=== PATIENT | female | born 1990 | race Caucasian/White ===

== ENCOUNTER → 2017-04-14 | Outpatient (REF) ==
[~2017-04-14] MED LIST: AMOXICILLIN 50500 MG PO; ANTIVERT 12.512.5 MG PO; CEFTIN 250250 MG/TAB PO; DEPO-PROVER150 MG/M1 IM; IRON325 M2 PO; LORTAB 5/500 501 TAB; MOTRIN 800800 MG/TAB PO; MOTRIN800 MG PO; ORTHO-NOVUM 1/31 TA1 PO; PERCOCET 325 MG1 TA2 PO; PREDNISONE20 MG PO; PRENATAL1 TA1 PO; PROMETHAZINE12.5 M5 PO; PROVENTIL0.09 MG/A1 IH; SUDAFED60 MG PO
[2017-04-14 14:54] LABS: ADJUSTED CALCIUM 8.7 mg/dL (8.4-10.2); ALBUMIN 4.2 gm/dL (3.5-5.0); BILIRUBIN,TOTAL 1.1 mg/dL (0.0-1.0); CALCIUM 8.9 mg/dL (8.4-10.2); CREATININE, serum 0.8 mg/dL (0.52-1.25); POTASSIUM 3.5 mmol/L (3.4-5.0); TOTAL PROTEIN 7.3 gm/dL (6.4-8.2)
== END ==
LOC: ZLAB.WCH 14:45
PROVIDERS: Physician Assistant
DX: Z01.89 Encounter for other specified special examinations (principal)

== ENCOUNTER 2021-08-20 14:49 | Outpatient (CLI) | payer BC ==
[~2021-08-20] VITALS: Ht 170.2 cm; Wt 91.4 kg
--- NOTE | 2021-08-20 14:50 | NUR ---
1450- Pt arrives on unit ambulatory with FOB. Complains of possible SROM at 0700 this morning. Pt states she felt a large gush while sitting on the toilet. Pt denies leaking since then, did not wear a peripad in. Pt oriented to room, Pt into bathroom, changes into gown. 1455- Pt into bed, EFM and TOCO on and tracing well. O2 sat monitor on and tracing maternal HR. VSS. Pt denies regular contractions, VB. + FM per Pt report. 1505- Amniotrace negative. SVE /-3. BOW palpated with exam, unable to palpate presenting part. Assessments completed.
[2021-08-20 15:15] VITALS: BP 146/87; PULSE 105; TEMP 98.5
[2021-08-20] MEDS ORDERED: ZOLOFT 25MG25 MG PO (15:36)
[2021-08-20] MEDS ORDERED: PRENATAL TABLET PO (15:37)
[2021-08-20 15:40] VITALS: BP 110/70; PULSE 86
--- NOTE | 2021-08-20 15:50 | NUR ---
1540- EFM and TOCO off. Pt up to change into street clothes. 1550- Discharge paperwork given and explained. Labor precautions discussed. Pt denies questions. Pt ambulates off unit with spouse in stable condition.
== END 2021-08-20 15:50 | disposition home or self-care (01) ==
LOC: LDRO 14:49
DX: O42.92 Full-term premature rupture of membranes, unspecified as to length of time between rupture and onset of labor (principal); Z3A.38 38 weeks gestation of pregnancy

== ENCOUNTER 2021-08-28 06:16 | Inpatient (IN) | payer BC ==
[2021-08-28] VITALS (25 sets, daily range): BP systolic 104–155; BP diastolic 55–88; PULSE 65–102; TEMP 97.9–98.2
[~2021-08-28] VITALS: Ht 170.2 cm; Wt 93.6 kg
[~2021-08-28 06:16] MED LIST changes: +PRENATAL TABLET PO; +ZOLOFT 25MG25 MG PO
--- NOTE | 2021-08-28 06:25 | NUR ---
PT ARRIVES AMBULATORY TO UNIT FOR SCHEDULED IOL. DENIES LEAKING OF FLUID, DENIES CONTRACTIONS AND REPORTS POSITIVE MOVEMENT. PT ASSISTED INTO GOWN AND PLACED IN BED ON EFM/TOCO. CATEGORY 1 STRIP UPON ARRIVAL, ACCELERATIONS NOTED WITH NO DECELERATIONS. PT CONTRACTIONS Q7-8 MINUTES, MILD WITH PALPATION AND MILD PAIN REPORTED PER PT REPORT. PT ORIENTED TO LABOR ROOM AND PLAN OF CARE, DENIES FURTHER QUESTIONS OR CONCERNS. WILL RESUME WITH IOL PER ORDERS.
[2021-08-28 07:34] LABS: BASO % 0.2 % (0.0-2.0); EOS # 0.1 K/mm3 (0.0-0.7); EOS % 0.8 % (0.0-4.0); GRAN # 7.3 K/mm3 (1.4-6.5); GRAN % 75.8 % (42.2-75.2); HEMOGLOBIN 11.9 g/dl (12.5-16.0); LYMPH # 1.5 K/mm3 (1.2-3.4); LYMPH % 15.3 % (20.0-51.0); MEAN CELL VOLUME 85 fl (80.0-100.0); MEAN CORPUSCULAR HEMOGLOBIN 28 pg (27-31); MEAN CORPUSCULAR HGB CONC 33 g/dl (33.0-37.0); MEAN PLATELET VOLUME 10.1 fl (7.4-10.4); MONO # 0.7 K/mm3 (0.1-0.6); MONO % 7.4 % (1.7-9.3); PLATELET COUNT 239 K/mm3 (130-400); RED BLOOD COUNT 4.22 M/mm3 (4.10-5.30); REDCELL DISTRIBUTION WIDTH-CV 14.4 % (11.5-14.5)
[2021-08-28 07:35] LABS: HEMATOCRIT 35.8 % (37.0-47.0)
--- NOTE | 2021-08-28 09:50 | NUR ---
0953: ROB MARIO CRNA AT BEDSIDE, PT TO SITTING POSITION ON EDGE OF BED TO PREPARE FOR EPIDURAL PLACEMENT. DIFFICULTY TRACING EFM/TOCO DUE TO MATERNAL POSITIONING. 0957: PT UNABLE TO CONTROL URGE TO PUSH, REQUESTING TO LAY BACK DOWN AND SKIP EPIDURAL PLACEMENT AT THIS TIME. PT COMPLETE/+2, NOTIFIED. 1000: AT BEDSIDE PREPARING FOR DELIVERY. 1004: OF VIABLE MALE AT THIS TIME, SHOULDER DYSTOCIA X45 SECONDS, SEE INTERVENTIONS AND PHYSICIAN NOTED. NUCHAL X3 NOTED AT DELIVERY. PLACED ON MATERNAL ABDOMEN, CARE ASSUMED BY RADHA BARRON. PT TOLERATED DELIVERY WELL. 1007: OF PLACENTA. PITOCIN INFUSING PER PROTOCOL. MODERATE LOCHIA, VORB FOR IM METHERGINE AT THIS TIME. SEE EMAR. PERINEUM INTACT FOLLOWING DELIVERY. 1015: FUNDUS FIRM AT UMBILICUS, LOCHIA SMALL, NO CLOTS NOTED. VITAL SIGNS STABLE AT THIS TIME. WILL CONTINUE TO MONITOR PP FUNDAL CHECKS AND BLEEDING PER PROTOCOL. PT IN STABLE CONDITION.
--- NOTE | 2021-08-28 13:30 | NUR ---
PT ABLE TO TOLERATE PO FOOD AND WATER. DENIES NAUSEA, DIZZINESS OR FEELING LIGHT HEADED. FUNDUS FIRM AND 1FB BELOW UMBILICUS. LOCHIA SMALL, NO CLOTS NOTED. VITAL SIGNS STABLE. PT ASSISTED TO STANDING POSITION, DENIES DIZZINESS. AMBULATORY TO RESTROOM. PERICARE, NEW PAD, CLEAN GOWN, CLEAN UNDERWEAR PROVIDED FOR PT. PT AMBULATORY TO ROOM 207 FOR CARES AT THIS TIME. EDUCATED ON PLAN OF CARE AND ORIENTED TO NEW ROOM. FOB AND MOTHER OF PT REMAIN AT BEDSIDE TO OFFER SUPPORT. STABLE AT THIS TIME, WILL CONTINUE TO MONITOR.
[2021-08-29 03:30] VITALS: BP 102/59; PULSE 91; TEMP 97.7
[2021-08-29 08:15] VITALS: BP 101/74; PULSE 87; TEMP 98
--- NOTE | 2021-08-29 08:57 | NUR ---
Initial visit; Family thanked Skin Diving Teacher for offering congratulations and God's blessings for the of their son. Skin Diving Teacher thanked family for choosing [facility].
--- NOTE | 2021-08-29 09:52 | NUR ---
0940REPORT RECEIVED FROM Nicole CLARKE RN AT THIS TIME. THIS RN TO ASSUME CARE. 0945THIS RN AT BEDSIDE. PATIENT UPDATED ON NURSING STAFF CHANGE. PATIENT HAS NO NEEDS AT THIS TIME. CALL LIGHT WITHIN REACH.
[2021-08-29] MEDS ORDERED: IBU800 M1 PO (12:07)
--- NOTE | 2021-08-29 17:35 | NUR ---
1600DISCHARGE INSTRUCTIONS REVIEWED WITH PATIENT. PATIENT VERBALIZED UNDERSTANDING. WILL NOTIFY NURSING STAFF WHEN READY. 1615ALL PERSONAL BELONGINGS GATHERED FROM PATIENT ROOM. PATIENT LEFT AMBULATORY AND IN NO APPARENT DISTRESS. PATIENT ACCOMPANIED BY SPOUSE, CHILDREN, AND Lukasz MOON
== END 2021-08-29 16:15 | disposition home or self-care (01) | DRG 806 ==
LOC: LDR 06:16 → OB 13:31 → LDR 15:00 → OB 08-29 16:15
PROVIDERS: ADMIT Student in an Organized Health Care Education/Training Program
PROC: 10E0XZZ Delivery of Products of Conception, External Approach (ICD-10-PCS; principal; 2021-08-28)
PROC: 10907ZC Drainage of Amniotic Fluid, Therapeutic from Products of Conception, Via Natural or Artificial Opening (ICD-10-PCS; 2021-08-28)
PROC: 3E033VJ Introduction of Other Hormone into Peripheral Vein, Percutaneous Approach (ICD-10-PCS; 2021-08-28)
DX: O99.344 Other mental disorders complicating childbirth (principal); O72.1 Other immediate postpartum hemorrhage; Z37.0 Single live birth; F41.3 Other mixed anxiety disorders; F32.A Depression, unspecified; O99.52 Diseases of the respiratory system complicating childbirth; J45.909 Unspecified asthma, uncomplicated; O99.214 Obesity complicating childbirth; O69.81X0 Labor and delivery complicated by cord around neck, without compression, not applicable or unspecified; O66.0 Obstructed labor due to shoulder dystocia; Z3A.39 39 weeks gestation of pregnancy
CPT/HCPCS: J2210; J2590; J7120